=== PATIENT | male | born 1940 | race Caucasian/White ===

== ENCOUNTER → 2021-01-16 08:27 | Outpatient (CLI) | payer MEDICARE, SELFPAY ==
[2021-01-16 13:25] LABS: COVID19 -Nasal RAPID Negative (Negative)
== END ==
PROVIDERS: PCP Family Medicine; Visit Provider Nurse Practitioner Family
DX: Z20.822 Contact with and (suspected) exposure to COVID-19 (principal)
CPT/HCPCS: 87635; C9803

== ENCOUNTER 2021-01-17 07:27 | Day surgery (SDC) | payer MEDICARE, SELFPAY ==
[2021-01-17 07:45] VITALS: BP 128/81; PULSE 68; RESP 16; TEMP 36.2; O2SAT 97; BMI 27.2
[2021-01-17] MEDS: PROPARACAINE 0.5% OPHTH SOL 2 DROPS EYE-OP (07:50)
[2021-01-17] MEDS: CATARACT EYE COMPOUND (10 DROPS/SYRINGE) 3 DROPS EYE-OP ×2 (07:55→08:09)
--- NOTE | 2021-01-17 08:10 | SUR.PREOP ---
Pupil not dialated after 3 drops x3. states pupil did not dialate very well at Dr Alonso's office. Additional drops given as per JUN.
--- NOTE | 2021-01-17 09:01 | PM.PREOP ---
Pre-operative Note Interval Note History & Physical reviewed/Exam performed by Physician: Yes Changes to H&P: No
--- NOTE | 2021-01-17 09:01 | PM.OP.1 ---
Operative Date/Time/Diagnoses Pre-op diagnosis: Nuclear Cataract Left eye Post-op diagnosis: same Procedure & Clinicians Same procedure as scheduled: Yes Surgeon: Juan Luis Alonso Anesthesia Type: MAC +/- and Sedation Operative Notes Procedure in detail: Patient brought to the operating suite. Tetracaine drops placed in the left eye. Patient was prepped and draped in sterile manner. Wire lid speculum was placed in the eye. Betadine drops were placed on the eye. This was irrigated. Lidocaine jelly was placed on the eye. A paracentesis port was created with a side-port blade. 0.1 mL 1% preservative free lidocaine was injected into the anterior chamber. The anterior chamber was deepened with viscoelastic. 2.6 mm keratome was used to create a temporal clear corneal incision. 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 A 6.25 mm Malyugin ring was used to enlarge the pupil. Cystotome and Utrata forceps were used to create continuous tear capsulorrhexis. Balanced salt solution was used to hydro dissect the nucleus. The phacoemulsification handpiece was inserted and the nucleus was removed using the stop and chop technique. The irrigation aspiration handpiece was inserted and the remaining cortex was removed. Anterior chamber was deepened with viscoelastic. An Nation DIB00 intraocular lens with a power of 21.0 was injected into the capsular bag. The malyugin ring was removed. Irrigation aspiration handpiece was inserted and the remaining viscoelastic was removed. Incision was hydrated with balanced salt solution and found to be leak free with pressure with Weck-Jeny sponges. 0.1 mL Vigamox injected anterior chamber. 0.3 mL Kenalog 10 mg was injected subconjunctivally. Lid speculum was removed. The patient left the operating room in excellent condition. Complications: none Post-operative Condition: stable Disposition: same day surgery
[2021-01-17] MEDS: LIDOCAINE 2% (GLYDO) 6 ML GEL TOP (09:19)
[2021-01-17] MEDS: PHENYLEPHRINE/LIDOCAINE VIAL (OR) 0.2 ML EYE-OP (09:19)
[2021-01-17] MEDS: MOXIFLOXACIN INJ 4 MG/0.8 ML VIAL 0.5 MG EYE-OP (09:19)
[2021-01-17] MEDS: HYALURONATE SODIUM 30 MG-10 MG/ML SYRINGES 1 BOX INTRAOCULA (09:19)
[2021-01-17] MEDS: TRIAMCINOLONE 50 MG/5 ML VIAL INJ (09:20)
[2021-01-17] MEDS: BALANCED SALT IRRIG SOLN NO.2 500 ML, EPINEPHrine 1 MG IRR (09:20)
[2021-01-17] MEDS: TETRACAINE 0.5% OPHTH DROPS 4 ML 2 DROPS EYE-OP (09:20)
[2021-01-17 09:52] VITALS: BP 103/66; PULSE 60; RESP 16; TEMP 36.1; O2SAT 95
== END 2021-01-17 09:58 | disposition home or self-care (01) ==
PROVIDERS: PCP Family Medicine; Referring Provider Ophthalmology; Visit Provider Ophthalmology
PROC: (CPT 66984; principal; 2021-01-17 09:15)
DX: H25.12 Age-related nuclear cataract, left eye (principal); G47.30 Sleep apnea, unspecified; F32.9 Major depressive disorder, single episode, unspecified
CPT/HCPCS: 66984; J0171; J2250; J3301

== ENCOUNTER → 2021-02-13 10:54 | Outpatient (CLI) | payer MEDICARE, SELFPAY ==
[2021-02-13 16:17] LABS: COVID19 -Nasal RAPID Negative (Negative)
== END ==
PROVIDERS: PCP Family Medicine; Visit Provider Nurse Practitioner Family
DX: Z20.822 Contact with and (suspected) exposure to COVID-19 (principal); Z01.812 Encounter for preprocedural laboratory examination
CPT/HCPCS: 87635

== ENCOUNTER 2021-02-14 06:53 | Day surgery (SDC) | payer MEDICARE, SELFPAY ==
[2021-02-14] MEDS: PROPARACAINE 0.5% OPHTH SOL 2 DROPS EYE-OP (07:20)
[2021-02-14] MEDS: CATARACT EYE COMPOUND (10 DROPS/SYRINGE) 3 DROPS EYE-OP (07:25)
[2021-02-14 07:26] VITALS: BP 110/78; PULSE 65; RESP 20; TEMP 36.3; O2SAT 94; BMI 25.4
--- NOTE | 2021-02-14 08:29 | PM.PREOP ---
Pre-operative Note Interval Note History & Physical reviewed/Exam performed by Physician: Yes Changes to H&P: No
--- NOTE | 2021-02-14 08:29 | PM.OP.1 ---
Operative Date/Time/Diagnoses Pre-op diagnosis: Nuclear cataract right eye Procedure & Clinicians Procedure: Cataract Surgery Same procedure as scheduled: Yes Surgeon: Juan Luis Alonso Anesthesia Type: MAC +/- and Sedation Operative Notes Procedure in detail: Patient brought to the operating suite. Tetracaine drops placed in the right eye. Patient was prepped and draped in sterile manner. Wire lid speculum was placed in the eye. Betadine drops were placed on the eye. This was irrigated. Lidocaine jelly was placed on the eye. A paracentesis port was created with a side-port blade. 0.1 mL 1% preservative free lidocaine was injected into the anterior chamber. The anterior chamber was deepened with viscoelastic. 2.6 mm keratome was used to create a temporal clear corneal incision. The pupil was floppy and miotic. A 6.25mm Malyugin ring was used to enlarge the pupil. Cystotome and Utrata forceps were used to create continuous tear capsulorrhexis. Balanced salt solution was used to hydro dissect the nucleus. The phacoemulsification handpiece was inserted and the nucleus was removed using the stop and chop technique. The irrigation aspiration handpiece was inserted and the remaining cortex was removed. Anterior chamber was deepened with viscoelastic. An Nation DIB00 intraocular lens with a power of 21.0 was injected into the capsular bag. The malyugin ring was removed. Irrigation aspiration handpiece was inserted and the remaining viscoelastic was removed. Incision was hydrated with balanced salt solution and found to be leak free with pressure with Weck-Jeny sponges. 0.1 mL Vigamox injected anterior chamber. 0.3 mL Kenalog 10 mg was injected subconjunctivally. Lid speculum was removed. The patient left the operating room in excellent condition. Complications: none Post-operative Condition: stable Disposition: same day surgery
[2021-02-14] MEDS: HYALURONATE SODIUM 30 MG-10 MG/ML SYRINGES 1 BOX INTRAOCULA (08:49)
[2021-02-14] MEDS: MOXIFLOXACIN INJ 4 MG/0.8 ML VIAL 0.5 MG EYE-OP (08:49)
[2021-02-14] MEDS: TRIAMCINOLONE 50 MG/5 ML VIAL INJ (08:50)
[2021-02-14] MEDS: PHENYLEPHRINE/LIDOCAINE VIAL (OR) 0.2 ML EYE-OP (08:50)
[2021-02-14] MEDS: LIDOCAINE 2% (GLYDO) 6 ML GEL TOP (08:50)
[2021-02-14] MEDS: TETRACAINE 0.5% OPHTH DROPS 4 ML 2 DROPS EYE-OP (08:50)
[2021-02-14] MEDS: BALANCED SALT IRRIG SOLN NO.2 500 ML, EPINEPHrine 1 MG IRR (08:51)
[2021-02-14 09:13] VITALS: BP 104/72; PULSE 69; RESP 18; TEMP 36.7; O2SAT 96
--- NOTE | 2021-02-14 09:25 | SUR.PHASEII ---
Pt ready to go, awaiting ride for a ride home.
--- NOTE | 2021-02-14 09:43 | SUR.PHASEII ---
Ride available, left unit in stable condition.
== END 2021-02-14 09:30 | disposition home or self-care (01) ==
PROVIDERS: PCP Family Medicine; Referring Provider Ophthalmology; Visit Provider Ophthalmology
PROC: (CPT 66984; principal; 2021-02-14 08:45)
DX: H25.11 Age-related nuclear cataract, right eye (principal); F32.9 Major depressive disorder, single episode, unspecified; G47.33 Obstructive sleep apnea (adult) (pediatric)
CPT/HCPCS: 66984; J0171; J2250; J3301